=== PATIENT | male | born 1975 | race Caucasian/White ===

== ENCOUNTER → 2019-07-21 | Outpatient (CLI) | payer MEDICAID, OTHER ==
[~2019-07-21] MED LIST: RISP2TAB32 PO; TRAZ-252 PO; no home medications
== END ==
LOC: M OUTALCOH 09:15
PROVIDERS: ATTEND Psychiatry & Neurology Addiction Medicine
DX: F10.20 Alcohol dependence, uncomplicated (principal); F12.10 Cannabis abuse, uncomplicated